=== PATIENT | female | born 1980 | race Two or more races ===

== ENCOUNTER 2016-10-24 00:15 | Emergency (ER) | payer SELFPAY ==
[2016-10-24] MEDS ORDERED: OXYCODONE HCL 5 MG TABLET ONE (02:54)
[2016-10-24] MEDS ORDERED: ACETAMINOPHEN 500 MG TABLET ONE (02:54)
--- NOTE | 2016-10-24 07:44 | RAD ---
LOWER LEG LEFT HISTORY: Injury. COMPARISONS: None. FINDINGS: 2 views of the left lower leg were performed demonstrating intact osseous structures. No fracture or periosteal reaction is seen. The proximal and distal joint spaces are well-maintained. No focal soft tissue abnormalities are seen. IMPRESSION: 1. Negative views of the left lower leg.
== END 2016-10-24 03:58 | disposition home or self-care (01) ==
LOC: ED 00:15
DX: M79.662 Pain in left lower leg (principal); W23.0XXA Caught, crushed, jammed, or pinched between moving objects, initial encounter; Y92.9 Unspecified place or not applicable
CPT/HCPCS: 73590; 99283 ×2; A9270 ×2